=== PATIENT | female | born 1990 | race Caucasian/White ===

== ENCOUNTER 2017-04-06 05:45 | Emergency (ER) | payer BC, MEDICAID ==
[2017-04-06] MEDS: SODIUM CHLORIDE 0.9% FLUSH 10 ML SOL IV PRN ×2 (06:10→09:04)
[2017-04-06] MEDS ORDERED: SODIUM CHLORIDE 0.9% 1000ML 1,000 ML IV ONE (06:10)
[2017-04-06 06:16] LABS: BASOPHILS % (AUTO) 1 % (0-3); EOSINOPHILS % (AUTO) 0 % (0-9); HEMATOCRIT 39 % (35-47); MEAN CORPUSCULAR HGB CONC 34.4 gm/dl (32.0-36.0); MEAN CORPUSCULAR VOLUME 91 fL (81-99); MONOCYTES % (AUTO) 8.1 % (0-12); NEUTROPHILS % (AUTO) 82.2 % (37-80)
[2017-04-06 06:25] LABS: CALCIUM 9.1 mg/dl (8.5-10.1); POTASSIUM 3.7 mMol/L (3.5-5.1)
[2017-04-06] MEDS ORDERED: ONDANSETRON HCL 4 MG/2 ML SOL ONE (06:34)
[2017-04-06] MEDS ORDERED: ONDANSETRON HCL 4 MG/2 ML SOL IV ONE (06:36)
[2017-04-06] MEDS ORDERED: HYDROMORPHONE HCL 2 MG/ML SOL IV ONE ×3 (06:43→08:56)
[2017-04-06] MEDS ORDERED: HYDROMORPHONE HCL 2 MG/ML SOL ONE ×2 (06:44→08:57)
[2017-04-06 07:48] VITALS: O2SAT 98
[2017-04-06 08:55] VITALS: BP 105/70; PULSE 88; RESP 14; TEMP 98.9
== END 2017-04-06 09:15 | disposition short-term general hospital (02) | DRG 395 ==
LOC: ED 05:45
DX: K35.80 Unspecified acute appendicitis (principal)
CPT/HCPCS: 36415; 74177; 80048; 85025; 96365; 96374; 96375; 99285; J1170; J2405; Q9967

== ENCOUNTER 2018-12-08 18:19 | Emergency (ER) | payer BC, MEDICAID ==
[2018-12-08 18:27] VITALS: BP 128/78; PULSE 103; RESP 18; TEMP 98.4; O2SAT 100
[2018-12-08] MEDS ORDERED: ONDANSETRON HCL 4 MG/2 ML SOL IV ONE (18:28)
[2018-12-08] MEDS ORDERED: SODIUM CHLORIDE 0.9% 1000ML 1,000 ML IV ONE (18:28)
[2018-12-08] MEDS ORDERED: ONDANSETRON HCL 4 MG/2 ML SOL ONE (18:36)
[2018-12-08 18:39] LABS: BASOPHILS % (AUTO) 1 % (0-3); EOSINOPHILS % (AUTO) 0 % (0-9); HEMATOCRIT 47 % (35-47); HEMOGLOBIN 14.8 gm/dl (12.0-15.5); LYMPHOCYTES % (AUTO) 12.6 % (10-50); MEAN CORPUSCULAR HEMOGLOBIN 29.9 pg (27.0-32.0); MEAN CORPUSCULAR HGB CONC 31.7 gm/dl (32.0-36.0); MEAN CORPUSCULAR VOLUME 94 fL (81-99); NEUTROPHILS % (AUTO) 82.8 % (37-80)
[2018-12-08] MEDS ORDERED: SODIUM CHLORIDE 0.9% FLUSH 10 ML SOL IV PRN (18:43)
[2018-12-08 18:44] LABS: LACTIC ACID 2.3 mMol/L (0.0-2.0)
[2018-12-08 18:58] LABS: ALBUMIN 4.6 gm/dl (3.4-5.0); BILIRUBIN,TOTAL 0.7 mg/dl (0.2-1.0); CALCIUM 9.8 mg/dl (8.5-10.1); CARBON DIOXIDE 21.7 mEq/L (21-32); CREATININE 1.06 mg/dl (0.60-1.00)
[2018-12-08 20:03] LABS: APPEARANCE,URINE Clear; BILIRUBIN,URINE NEGATIVE (NEGATIVE); COLOR,URINE Yellow; GLUCOSE, URINE (UA) NEGATIVE (NEGATIVE); KETONES,URINE 4+ (NEGATIVE); LEUKOCYTE ESTERASE ,URINE NEGATIVE (NEGATIVE); NITRATE,URINE NEGATIVE (NEGATIVE); OCCULT BLOOD,URINE NEGATIVE (NEG-TRACE); PH,URINE 8.5; UROBILINOGEN,URINE 0.2 (0.2-1.0 EU)
[2018-12-08 20:14] LABS: BACTERIA 1+ (< 1+); CRYSTALS NEGATIVE (0-3 AVE/HPF); RBC,URINE 0-1 (0-3AV/HPF)
[2018-12-08] MEDS ORDERED: ONDANSETRON HCL 4 MG TAB PO ONE (20:30)
[2018-12-08] MEDS ORDERED: ONDANSETRON HCL 4 MG TAB ONE (20:38)
== END 2018-12-08 20:46 | disposition home or self-care (01) ==
LOC: ED 18:19
DX: R11.2 Nausea with vomiting, unspecified (principal); E86.0 Dehydration; Z72.89 Other problems related to lifestyle
CPT/HCPCS: 80053; 81001; 85025; 96365; 96374; 99282; 99283; J2405; A9270-GY